=== PATIENT | female | born 1975 | race Caucasian/White ===

== ENCOUNTER → 2017-02-19 | Outpatient (CLI) | payer OTHER ==
--- NOTE | 2017-02-19 10:26 | KCIC ---
EXAM: Lumbar spine MRI without contrast. HISTORY: Pain. TECHNIQUE: Multiplanar, multisequence magnetic resonance imaging of the lumbar spine was performed without contrast. COMPARISON: None. FINDINGS: There is minimal retrolisthesis of L4 on L5. There is degenerative endplate remodeling with disc space narrowing primarily at and L5-S1. There is disc desiccation at L4-L5 and L5-S1. There are a few endplate Schmorl's nodes. The conus terminates at L1. No suspicious osseous lesion is seen. There is a 1.0 cm cyst within the posterior medial right hepatic lobe. There is slight nodular thickening of the left adrenal gland, without a discrete lesion. There is a 1.9 cm cyst within the right kidney. At T11-T12, there is a left paracentral disc protrusion which deforms the left ventral aspect of the spinal cord and deviates the traversing nerve roots without significant central canal stenosis. At T12-L1, there is no stenosis. At L1-L2, there is a right paracentral predominant disc bulge and endplate remodeling. There is no stenosis. At L2-L3 and L3-L4, there is no stenosis. At L4-L5, there is a shallow posterior central disc protrusion and annular tear superimposed on a disc bulge. There may also be a shallow left foraminal to extraforaminal disc protrusion. There is no stenosis. At L5-S1, there is a shallow posterior central disc protrusion and annular tear and there are bilateral foraminal to extraforaminal disc osteophyte complexes. There is abutment or near abutment of the exiting L5 nerve roots with minimal foraminal stenosis. IMPRESSION: 1. T11-T12: Left paracentral disc protrusion which deforms the left ventral aspect of the spinal cord and deviates the traversing nerve roots, without significant stenosis. 2. Mild degenerative change within the lumbar spine, described in detail above. Electronically signed by: Erinn Gill MD (02/19/2017 10:23 AM) [id number]
== END | disposition home or self-care (01) ==
LOC: KCIC MRI 09:03
PROVIDERS: ATTEND Nurse Practitioner Family
DX: M51.24 Other intervertebral disc displacement, thoracic region (principal); M47.896 Other spondylosis, lumbar region
CPT/HCPCS: 72148

== ENCOUNTER → 2018-03-27 | Outpatient (CLI) | payer OTHER ==
--- NOTE | 2018-03-27 11:23 | KCIC ---
EXAMINATION: Magnetic resonance imaging (MRI) of the lumbar spine without contrast 03/27/2018 10:15 AM HISTORY: Bilateral foot paresthesias. Sensation of rectal fullness. No retropulsion Extremities with bilateral foot numbness. TECHNIQUE: Multiplanar multi-weighted MRI of the lumbar spine was performed without intravenous contrast using the standard lumbar spine protocol. Contrast information: None administered. COMPARISON: None available. FINDINGS: The alignment of the lumbar spine is normal. Vertebral bodies demonstrate normal signal intensity on all sequences. There are no compression fractures. The conus medullaris terminates at the level of L1. The distal spinal cord signal intensity is normal. There is disc desiccation at L4-L5 and L5-S1 with associated annular fissures. There is mild disc height loss at L4-L5 and moderate disc height loss at L5-S1. There is a left central posterior disc osteophyte complex at T11-T12 with mild spinal canal stenosis. There is mild disc height loss and mild disc desiccation at L1-L2. Visualized portions of the retroperitoneum demonstrate a simple appearing renal cyst in the medial right kidney measuring 13 mm. Abdominal aorta is normal in caliber. No suspicious retroperitoneal abnormality is visualized. L1-L2: There is a mild disc bulge with right foraminal disc protrusion. There is no facet arthropathy. There is mild right neuroforaminal stenosis. There is no spinal canal stenosis. L2-L3: The disc is normal in configuration. There is no facet arthropathy. There is no neuroforaminal stenosis. There is no spinal canal stenosis. L3-L4: The disc is normal in configuration. There is no facet arthropathy. There is no neuroforaminal stenosis. There is no spinal canal stenosis. L4-L5: There is a central disc protrusion superimposed on mild disc bulge. There is mild facet arthropathy. There is mild neuroforaminal stenosis. There is no spinal canal stenosis. L5-S1: There is a central disc protrusion. There is mild to moderate facet arthropathy. There is mild to moderate bilateral neuroforaminal stenosis. There is no spinal canal stenosis. IMPRESSION: Mild degenerative changes of the lumbar spine as described in detail above. Findings are most prominent at L4-L5 and L5-S1. Electronically signed by: Jaelyn Gao MD (03/27/2018 11:20 AM) [id number]
== END | disposition home or self-care (01) ==
LOC: KCIC MRI 09:53
PROVIDERS: ATTEND Family Medicine
DX: M47.896 Other spondylosis, lumbar region (principal); M51.27 Other intervertebral disc displacement, lumbosacral region; M48.07 Spinal stenosis, lumbosacral region; M48.04 Spinal stenosis, thoracic region; M25.78 Osteophyte, vertebrae
CPT/HCPCS: 72148